=== PATIENT | male | born 1995 | race Caucasian/White ===

== ENCOUNTER 2016-12-09 11:57 | Emergency (ER) | payer SELFPAY ==
[~2016-12-09] VITALS: Ht 167.6 cm; Wt 67.4 kg
[2016-12-09 12:01] VITALS: BP 118/68
[2016-12-09 13:09] LABS: ASPARTATE AMINO TRANSFERASE 15 U/L (15-37); BLOOD UREA NITROGEN 10 mg/dL (7-18)
[2016-12-09 13:17] LABS: ACETAMINOPHEN < 2 mcg/mL (10-30)
[2016-12-09 13:20] LABS: DAU SCREEN DISCLAIMER
== END 2016-12-09 15:57 | disposition home or self-care (01) ==
LOC: ED 15:51
DX: F41.1 Generalized anxiety disorder (principal); F32.0 Major depressive disorder, single episode, mild
CPT/HCPCS: 36415; 80053; 80307; 80329; 81003; 85025; 99284; G0480